=== PATIENT | female | born 1975 | race Hispanic/Latino ===

== ENCOUNTER 2017-09-14 18:15 | Emergency (ER) | payer OTHER ==
[~2017-09-14] VITALS: Ht 165.1 cm; Wt 71.7 kg
[~2017-09-14 18:15] MED LIST: MOBIC15 MG PO
[2017-09-14 18:42] VITALS: BP 131/80
--- NOTE | 2017-09-14 19:08 | RADIOLOGY REPORT ---
EXAMINATION: XR HAND, RIGHT CLINICAL INFORMATION: Pain. Rule out fracture. COMPARISON: None TECHNIQUE: PA, lateral, and oblique views of the right hand. FINDINGS: No acute fracture seen. The soft tissues are normal. The joint spaces are preserved. Bony mineralization is normal. The carpal bones are in normal anatomic alignment. The distal forearm bones appear normal. IMPRESSION: Normal plain film evaluation of the right hand.
--- NOTE | 2017-09-14 20:39 | ED HAND/WRIST INJURY COMPLAINT ---
History of Present Illness General Chief Complaint: Hand or Wrist Injury Stated Complaint: R HAND INJURY Source: patient, old records Exam Limitations: no limitations Vital Signs & Intake/Output Vital Signs & Intake/Output Vital Signs Date Time Temp Pulse Resp B/P B/P Pulse O2 O2 Flow FiO2 Mean Ox Delivery Rate 09/14 1841 97.4 79 16 131/80 97 Room Air Allergies Coded Allergies: No Known Allergies (09/14/17) Reconcile Medications Meloxicam (Mobic) 15 MG TAB 1 TAB PO DAILY PRN PAIN Triage Note: PT TO TRIAGE FOR SMALL LUMP TO RIGHT HAND AT BASE OF THUMB, STARTING WEDNESDAY. PT STATES IT STARTED TO SWELL. Triage Nurses Notes Reviewed? yes Occurred: just prior to arrival Duration: day(s): (3), constant Timing: recent history Injury Environment: home Severity: moderate Severity Numbers: 5 Pain/Injury Location: Right: 1st finger. Method of Injury: unknown No Modifying Factors: none Associated Symptoms: none : No Patient currently breastfeeds: No HPI: 41-year-old female presents to ER for evaluation complain of pain to her right hand. She states that she's had pain for the past 3 days however today began to notice swelling noted over her base of the right first finger. She denies any known injury or trauma she is right-hand dominant. No redness no warmth no fever no chills. No history of similar symptoms. She took ibuprofen in triage however states his symptoms persist. (Deonte Walter) Past History Travel History Traveled to [place] past 21 day No Medical History Any Pertinent Medical History? see below for history Neurological: NONE EENT: NONE Cardiovascular: NONE Respiratory: NONE Gastrointestinal: NONE Hepatic: NONE Renal: NONE Musculoskeletal: chronic back pain Psychiatric: NONE Endocrine: NONE Blood Disorders: NONE Cancer(s): NONE CAFE AIDE/Reproductive: NONE Surgical History Surgical History: non-contributory Psychosocial History What is your primary language Georgian Tobacco Use: Current Daily Use Daily Tobacco Use Amount/Type: => 5 Cigarettes daily ETOH Use: occasional use Illicit Drug Use: marijuana Family History Hx Contributory? No (Deonte Walter) Review of Systems Review of Systems Constitutional: Reports: see HPI. Comments Review of systems: See HPI, All other systems negative. Constitutional, no chills no fever, HEENT: no sore throat no congestion, Cardiovascular: No chest pain Skin: no rashes, no change in skin Respiratory: No dyspnea no cough no sputum Muscle skeletal: no back pain, no neck pain, Neurologic: , no headache Heme/endocrine: No bruising (Edna MUÑIZ,Deonte) Physical Exam Physical Exam General Appearance: well developed/nourished, no apparent distress, alert, awake , comfortable Hand Left: normal inspection, normal range of motion Hand Right: tender Comments: Well-developed well-nourished patient in no apparent distress. HEENT: Atraumatic, extraocular motion intact Neck: Supple, FROM Back: FROM Respiratory: No respiratory distress. Patient speaking in full complete sentences. Shoulder: Atraumatic/Stable. FROM . Elbow: Atraumatic/stable. FROM. No laxity Upper arm/Forearm: Atraumatic. Nontender. 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 Brisk cap refill lower Extremities: full range of motion Neuro: awake, alert, and oriented to person, place and time. There were no obvious focal neurologic abnormalities. Skin: Warm & dry;No appreciable rash on exposed skin Psych: Mood affect normal, normal memory normal judgment. (Deonte Walter) Progress Differential Diagnosis: cellulitis, contusion, compartment syndrome, dislocation , gout, sprain, tenosynovitis Plan of Care: Orders Procedure Date/time Status Durable Medical Equipment 09/14 2044 Active I discussed with patient her x-ray results brace was applied advised close follow-up with orthopedist for rest ice, Motrin she feels comfortable with plan cleared for discharge Diagnostic Imaging: Viewed by Me: Radiology Read. Discussed w/RAD: Radiology Read. Radiology Impression: PATIENT: NIALL AREVALO PRESENT AGE: 41 PATIENT ACCOUNT NO: [id number] : 77 LOCATION: [facility] ORDERING PHYSICIAN: Deonte MUÑIZ SERVICE DATE: 09/14/17-1845 EXAM TYPE: RAD - XRY- HAND, RIGHT EXAMINATION: XR HAND, RIGHT CLINICAL INFORMATION: Pain. Rule out fracture. COMPARISON: None TECHNIQUE: PA, lateral, and oblique views of the right hand. FINDINGS: No acute fracture seen. The soft tissues are normal. The joint spaces are preserved. Bony mineralization is normal. The carpal bones are in normal anatomic alignment. The distal forearm bones appear normal. IMPRESSION : Normal plain film evaluation of the right hand. DICTATED BY: Bobby Ellsworth MD DATE/TIME DICTATED:09/14/171903 CUT OUT WORKER:[id number] DATE/TIME TRANSCRIBED:09/14/171903 CONFIDENTIAL, DO NOT COPY WITHOUT APPROPRIATE AUTHORIZATION. <Electronically signed in Other Vendor System> SIGNED BY: Bobby Ellsworth MD 09/14/171907 (Deonte Walter) Departure Departure Time of Disposition: 2044 Disposition: HOME OR SELF CARE Condition: Stable Clinical Impression Primary Impression: Ganglion cyst Referrals: Obdulia DUFF,Jesse Kruse MD,Ana (PCP/Family) Additional Instructions: Rest ice interchange Tylenol Motrin. Brace as discussed. Follow up with orthopedist Dr. FOSTER if symptoms persist. Departure Forms: Customer Survey General Discharge Information (Deonte Walter) PA/COLLABORATIVE TEACHER Co-Sign Statement Statement: ED Attending supervision documentation- [] I saw and evaluated the patient. I have also reviewed all the pertinent lab results and diagnostic results. I agree with the findings and the plan of care as documented in the PA's/COLLABORATIVE TEACHER's documentation. [x] I have reviewed the ED Record and agree with the PA's/COLLABORATIVE TEACHER's documentation. [] Additions or exceptions (if any) to the PAs/COLLABORATIVE TEACHER's note and plan are summarized below: [] (Enrique Walker DO)
== END 2017-09-14 20:55 ==
LOC: ERH 18:15
DX: M67.441 Ganglion, right hand (principal)
CPT/HCPCS: 73130-RT